=== PATIENT | male | born 1980 | race Caucasian/White ===

== ENCOUNTER 2016-12-31 11:13 | Emergency (ER) | payer OTHER ==
[2016-12-31] MEDS ORDERED: ONDANSETRON 4 MG TAB.RAPDIS PO ONE (11:45)
--- NOTE | 2016-12-31 11:46 | ER Document Report ---
ED Medical Screen (RME) - General Stated Complaint: NAUSEA Notes: Patient reports nausea, vomiting and diarrhea that started about 7 PM last night. Denies fever. Simeonance had same symptoms which resolved pretty quickly. Vomiting and diarrhea too many times to count per patient. I have greeted and performed a rapid initial assessment of this patient. A comprehensive ED assessment and evaluation of the patient, analysis of test results and completion of the medical decision making process will be conducted by additional ED providers. - Related Data Allergies/Adverse Reactions: No Known Allergies Allergy (Verified 12/31/16 11:44) Physical Exam - Vital signs Vitals: Pulse Resp BP Pulse Ox 97 12 135/86 H 100 12/31/16 11:45 12/31/16 11:45 12/31/16 11:45 12/31/16 11:45 - Notes Notes: pt actively vomiting in triage, had to run to restroom - Abdominal Inspection: Normal Bowel sounds: Normal Tenderness: Tender - diffuse Course - Vital Signs Vital signs: Temp Pulse Resp BP Pulse Ox 97 12 135/86 H 100 12/31/16 11:45 12/31/16 11:45 12/31/16 11:45 12/31/16 11:45
[2016-12-31 12:14] LABS: APPEARANCE,URINE SLIGHTLY-CLOUDY; BILIRUBIN,URINE NEGATIVE (NEGATIVE); GLUCOSE, URINE NEGATIVE (NEGATIVE); KETONES,URINE NEGATIVE (NEGATIVE); LEUKOCYTE ESTERASE,URINE NEGATIVE (NEGATIVE); NITRITE,URINE NEGATIVE (NEGATIVE); PROTEIN,URINE 30 mg/dL (NEGATIVE); URINE SPECIFIC GRAVITY 1.031; UROBILINOGEN,URINE NEGATIVE mg/dL (<2.0)
[2016-12-31 14:18] VITALS: BP 140/86
--- NOTE | 2016-12-31 14:18 | ER Document Report ---
HPI - HPI Patient complains to provider of: vomiting and diarrhea Onset: Other - last night Onset/Duration: Sudden Quality of pain: Achy Severity: Severe Pain Level: 5 Associated Symptoms: Diarrhea, Nausea, Vomiting. denies: Fever Exacerbated by: Denies Relieved by: Denies Similar symptoms previously: No Recently seen / treated by doctor: No - ROS ROS below otherwise negative: Yes Systems Reviewed and Negative: Yes All other systems reviewed and negative - CONSTITUTIONAL Constitutional: DENIES: Fever - EENT EENT: DENIES: Congestion - NEURO Neurology: DENIES: Headache - CARDIOVASCULAR Cardiovascular: DENIES: Chest pain - RESPIRATORY Respiratory: DENIES: Trouble Breathing - GASTROINTESTINAL Gastrointestinal: REPORTS: Abdominal Pain, Nausea, Patient vomiting, Diarrhea - URINARY Urinary: DENIES: Dysuria - MUSCULOSKELETAL Musculoskeletal: DENIES: Extremity pain - DERM Skin Color: Normal Skin Problems: None Past Medical History - General Information source: Patient - Social History Smoking Status: Never Smoker Chew tobacco use (# tins/day): No Frequency of alcohol use: None Drug Abuse: None Lives with: Family Family History: Reviewed & Not Pertinent Patient has suicidal ideation: No Patient has homicidal ideation: No - Medical History Medical History: Negative Surgical Hx: Negative - Immunizations Immunizations up to date: Yes Hx Diphtheria, Pertussis, Tetanus Vaccination: Yes Vertical Provider Document - CONSTITUTIONAL Agree With Documented VS: Yes Exam Limitations: No Limitations General Appearance: Mild Distress Notes: PT VOMITING - INFECTION CONTROL TRAVEL OUTSIDE OF THE [place] IN LAST 30 DAYS: No - HEENT HEENT: Atraumatic, Normal ENT Exam, Normocephalic - NECK Neck: Normal Inspection - RESPIRATORY Respiratory: Breath Sounds Normal O2 Sat by Pulse Oximetry: 100 - CARDIOVASCULAR Cardiovascular: Regular Rate, Regular Rhythm - GI/ABDOMEN Gastrointestinal: Abdomen Soft, Abdomen Non-Tender, Abnormal Bowel Sounds - HYPERACTIVE - BACK Back: Normal Inspection - MUSCULOSKELETAL/EXTREMETIES Musculoskeletal/Extremeties: SURENDRA FROM - NEURO Level of Consciousness: Awake, Alert, Appropriate - DERM Integumentary: Warm, Dry, No Rash Course - Re-evaluation Re-evalutation: 12/31/16 14:18 PT SYMPTOMS RESOLVED WITH ZOFRAN, ABLE TO KEEP FLUIDS DOWN. DISP FROM [facility] - Vital Signs Vital signs: Temp Pulse Resp BP Pulse Ox 97.4 F 97 12 135/86 H 100 12/31/16 11:49 12/31/16 11:45 12/31/16 11:45 12/31/16 11:45 12/31/16 11:45 - Laboratory Laboratory results interpreted by me: 12/31/16 11:55 Urine Protein 30 H Urine Ascorbic Acid 20 H Discharge - Discharge Clinical Impression: Vomiting and diarrhea Condition: Good Instructions: Antinausea Medication ([facility]), Diarrhea, Nonspecific ([facility]) Additional Instructions: OTC IMODIUM FOR DIARRHEA PUSH FLUIDS ZOFRAN NEEDED FOLLOW UP WITH [facility] IF SYMPTOMS RETURN Prescriptions: Ondansetron [Zofran Odt 4 mg Tablet] 1 - 2 tab PO Q4HP PRN #10 tab.rapdis PRN Reason:
== END 2016-12-31 14:20 | disposition home or self-care (01) ==
LOC: ER 11:13
DX: R11.2 Nausea with vomiting, unspecified (principal); R19.7 Diarrhea, unspecified; R10.9 Unspecified abdominal pain
CPT/HCPCS: 99284; 81001; S0119